=== PATIENT | male | born 1960 | race American Indian/Alaskan Native ===

== ENCOUNTER → 2016-10-03 | Outpatient (CLI) | payer MEDICARE, MEDICAID | END | disposition home or self-care (01) | LOC: RAD 08:46 | PROVIDERS: ATTEND Registered Nurse | DX: M51.37 Other intervertebral disc degeneration, lumbosacral region (principal); M48.07 Spinal stenosis, lumbosacral region | CPT/HCPCS: 72110 ==

== ENCOUNTER 2016-11-29 22:25 | Emergency (ER) | payer MEDICARE, MEDICAID ==
[~2016-11-29] VITALS: Ht 177.8 cm; Wt 100.0 kg
[2016-11-29] MEDS ORDERED: CLON0.2T PO (22:39)
[2016-11-29] MEDS ORDERED: AMLO5TAB4 PO (22:39)
[2016-11-29] MEDS ORDERED: SODIUM CHLORIDE 0.9% 1,000ML IVBOLUS ONE (23:00)
[2016-11-29] MEDS ORDERED: SODIUM CHLORIDE FLUSH 10ML SYR IVF ONE (23:00)
[2016-11-29 23:18] LABS: IS PT STATUS REG ER OR PRE ER? YES
[2016-11-29 23:19] LABS: BLOOD UREA NITROGEN 15 mg/dL (7-18)
[2016-11-29] MEDS ORDERED: POTASSIUM CHLORIDE 20 MEQ TAB.ER.PRT PO ONE (23:30)
[2016-11-29] MEDS ORDERED: POTASSIUM CHLORIDE 20 MEQ TAB.ER.PRT ONE (23:40)
[2016-11-30 00:26] VITALS: BP 106/64
== END 2016-11-30 00:51 | disposition home or self-care (01) ==
LOC: ED 11-30 00:50
DX: R00.2 Palpitations (principal); R55 Syncope and collapse; T50.905A Adverse effect of unspecified drugs, medicaments and biological substances, initial encounter; Y92.9 Unspecified place or not applicable; E87.6 Hypokalemia; I10 Essential (primary) hypertension
CPT/HCPCS: 36415; 80048; 82040; 83735; 84484; 85025; 93005; 96360; 99285; J7030